=== PATIENT | male | born 1955 | race Hispanic/Latino ===

== ENCOUNTER 2019-06-26 14:39 | Emergency (ER) | payer MEDICARE ==
[2019-06-26] MEDS ORDERED: ATIVAN IM STA (16:26)
[2019-06-26 16:32] LABS: Basophils # (Auto) 0.1 K/mm3 (0.0-0.1); Basophils % (Auto) 0.7 % (0.0-1.8); Eosinophils # (Auto) 0.2 K/mm3 (0.0-0.4); Eosinophils % (Auto) 2.4 % (0.0-4.3); Hematocrit 37.1 % (35.5-45.6); Hemoglobin 12.5 gm/dl (11.8-15.2); Lymphocytes # (Auto) 1.7 K/mm3 (1.2-5.4); Mean Corpuscular HGB Conc 34 % (32-34); Mean Corpuscular Volume 85 fl (84-94); Monocytes # (Auto) 0.8 K/mm3 (0.0-0.8); Monocytes % (Auto) 8.5 % (0.0-7.3); Platelet Count 271 K/mm3 (140-440); Red Blood Count 4.37 M/mm3 (3.65-5.03)
--- NOTE | 2019-06-26 16:34 | Emergency Department Report ---
ED Psych HPI - General Chief Complaint: Medical Clearance Stated Complaint: 1013 Time Seen by Provider: 06/26/19 16:25 Source: patient, EMS, RN notes reviewed Mode of arrival: Ambulatory - History of Present Illness Initial Comments: Mr. Black is a 63 year old male with history of dementia who presents from [facility] in [place] on 1012 involuntary hold protocol. According to the form by 1012 documentation he has been intermittently aggressive with staff. His aggression is not regulated on psychotropic medicine. He is resistant to help with ADLs. He has had intentional bowel and bladder incontinence. Mr. Black denies any discomfort. He is obviously agitated. I have reviewed the medications listed. Medications listed Seroquel Aricept Flomax lorazepam Tylenol. According to additional documentation, resident has Mr. Black has resisted care. He has been aggressive and combative. He resists redirection. MD Complaint: other (history of dementia, agitation and aggressive behavior) -: Gradual, days(s) (several days) Associated Psychiatric Symptoms: other (agitation and aggressive behavior) Quality: constant Improves With: none Worsens With: none Context: other (history of dementia, resides at memory care group home facility) Treatments Prior to Arrival: placed on mental he - Related Data Allergies Allergy/AdvReac Type Severity Reaction Status Date / Time No Known Allergies Allergy Unverified 06/26/19 16:07 ED Review of Systems ROS: Stated complaint: 1013 Other details as noted in HPI Comment: Unobtainable due to pts medical conditions (history of dementia and limited patient cooperation) ED Past Medical Hx - Past Medical History Previous Medical History?: Yes Hx Dementia: Yes - Surgical History Past Surgical History?: No - Social History Smoking Status: Unknown if ever smoked ED Physical Exam - General Limitations: Altered Mental Status General appearance: alert, in no apparent distress, other (he appears nontoxic, he is agitated, when I asked permission to listen to his heart and lungs he explains: "Make sure my heart is still there") - Head Head exam: Present: atraumatic, normocephalic - Eye Eye exam: Present: normal appearance - ENT ENT exam: Present: mucous membranes moist - Neck Neck exam: Present: normal inspection - Respiratory Respiratory exam: Present: normal lung sounds bilaterally. Absent: respiratory distress, wheezes, rales, rhonchi - Cardiovascular Cardiovascular Exam: Present: regular rate, normal rhythm, normal heart sounds. Absent: systolic murmur, diastolic murmur, rubs, gallop - GI/Abdominal GI/Abdominal exam: Present: soft, normal bowel sounds. Absent: distended, tenderness, guarding, rebound - Rectal Rectal exam: Present: deferred - Extremities Exam Extremities exam: Present: normal inspection - Neurological Exam Neurological exam: Present: alert, other (oriented to name) - Psychiatric Psychiatric exam: Present: agitated - Skin Skin exam: Present: warm, dry, intact, normal color. Absent: rash ED Medical Decision Making - Medical Decision Making Mr. Black is a 63-year-old male with history of dementia. He presents from [facility] nursing facility with resistance to perform ADLs, intentional incontinence, and aggressive behavior towards staff and residents. He presents on 1012 involuntary hold protocol. He has been assisted to our geriatric psych unit. He is medically clear for psychiatric care. I have reviewed labs obtained here in the emergency department. Upon arrival Mr. Black received IM lorazepam for chemical restraint. Critical care attestation.: If time is entered above; I have spent that time in minutes in the direct care of this critically ill patient, excluding procedure time. ED Disposition Clinical Impression: Dementia, Aggressive behavior of adult, Violent behavior Disposition: DC-01 TO HOME OR SELFCARE Is pt being admited?: No Does the pt Need Aspirin: No Condition: Stable
[2019-06-26 16:52] LABS: BUN/Creatinine Ratio 21; Blood Urea Nitrogen 21 mg/dL (9-20); Calcium 9.2 mg/dL (8.4-10.2); Hemolysis Index 7
[2019-06-26 17:03] VITALS: BP 123/76
[2019-06-26 17:33] LABS: Bilirubin,Urine NEG (Negative); Blood,Urine NEG (Negative); Color,Urine Yellow (Yellow); Mucus,Urine FEW /HPF; Protein,Urine <15 mg/dL mg/dL (Negative); RBC,Urine < 1.0 /HPF (0.0-6.0); Urobilinogen,Urine < 2.0 mg/dL (<2.0); WBC,Urine < 1.0 /HPF (0.0-6.0)
[2019-06-26 17:35] LABS: Amphetamine Screen,Urine PRESUMPTIVE NEGATIVE; Benzodiazepines Screen,Urine PRESUMPTIVE NEGATIVE; Cannabinoid Screen,Urine PRESUMPTIVE NEGATIVE; Cocaine Screen,Urine PRESUMPTIVE NEGATIVE; Methadone Screen,Urine PRESUMPTIVE NEGATIVE; Opiate Screen,Urine PRESUMPTIVE NEGATIVE
== END 2019-06-26 21:26 | disposition home or self-care (01) ==
LOC: EEVIPCON 14:39 → ED 14:39
DX: F91.1 Conduct disorder, childhood-onset type (principal); R45.6 Violent behavior; F03.90 Unspecified dementia, unspecified severity, without behavioral disturbance, psychotic disturbance, mood disturbance, and anxiety
CPT/HCPCS: 36415; 80048; 80307; 81001; 85025; 96372; 99284; J2060; 80320; G0480

== ENCOUNTER 2019-06-26 17:44 | Inpatient (IN) | payer MEDICARE ==
[2019-06-27] MEDS: LORazepam 2 MG/ML VIAL IM PRN ×2 (01:52→11:56)
[2019-06-27] MEDS: HALOPERIDOL LACTATE 5 MG/1 ML INJ IM PRN ×2 (07:42→16:00)
--- NOTE | 2019-06-27 09:09 | History and Physical Report ---
GP History & Physical - History of Present Illness Date of admission: 06/26/19 Date of Examination: 06/27/19 Reason for Admission: Danger to self, Danger to others, Unable to care for self Chief Complaint: Aggressive History of Present Illness: The patient is a 63yo male with history of Alzheimer's dementia who was admitted to [facility] last night via the ED with history of aggressive and combative behavior. The patient resides at [facility]. He is reportedly aggressive, combative, refusing cares and medications. Patient seen in the Dayroom. He is ambulatory, paces but very unsteady. He has a high risk of fall, hence he is on 1:1. He is very confused, oriented to self only and unable to engage in any meaningful conversation. Nursing staff reports that patient is restless, agitated, impulsive and not following re-directions Legal Status: Involuntary Patient Problems: Current Active Problems Major neurocognitive disorder due to Alzheimer's disease, with behavioral disturbance (Acute) Reaction to Hospitalization: Resistant Substance History - Substance History Drug Use: other (Unknown) Past psychiatric history - Past Medical History Past Medical History: other (Unknown) - Social History Social history: (lives in a [facility], daughter is her POA) Review of Systems ROS unobtainable: due to mental status Results - Results Labs/Vitals: Laboratory Last Values POC Glucose 112 (70-105) H 06/26/19 21:24 Last Vital Signs Temp 97.7 F 06/26/19 21:05 Pulse 65 06/26/19 21:05 Resp 18 06/26/19 21:05 BP 136/77 06/26/19 21:05 Pulse Ox 93 06/26/19 21:05 Physical Examination - Constitutional Vitals: Vital Signs Temp Pulse Resp BP Pulse Ox 97.7 F 65 18 136/77 93 06/26/19 21:05 06/26/19 21:05 06/26/19 21:05 06/26/19 21:05 06/26/19 21:05 Temperature -Last 24 Hours Temperature 97.7 F Temperature 97.7 F Mental Status Exam - Vital signs Last Vital Signs Temp 97.7 F 06/26/19 21:05 Pulse 65 06/26/19 21:05 Resp 18 06/26/19 21:05 BP 136/77 06/26/19 21:05 Pulse Ox 93 06/26/19 21:05 - Exam Affect: agitated Mood: congruent with affect, anxious Thought Process: Disorganized, Disoriented Perceptions: none Speech: paucity Concentration: unable to pay attention Motor activity: restless, agitated Level of consciousness: confused Memory: Recent Impaired, Remote Impaired Interaction: uncooperative Mini mental status exam(if necessary): 0-17 Assessment and Plan - Psychiatric problem (1) Major neurocognitive disorder due to Alzheimer's disease, with behavioral disturbance Current Visit: Yes Status: Acute plan to address problem: Patient will be admitted for inpatient psychiatric evaluation, medication adjustment and close monitoring The patient's behavior, mood, sleep and appetite will be closely monitored. Patient will be enrolled in individual and group therapeutic sessions and encouraged to attend. Patient will be provided with a safe and structured environment. Patient's physical health needs will be addressed by the Hospitalist. Social Assessment will be completed and the Lithographic Press Operator will work with patient and family to ensure a suitable and safe disposition Medication adjustment will be made as clinically indicated Physician Certification - Certification Statement Physician Certification Statement: This is an acknowledgement statement that SHY RIBERA is a 63 year old M who requires inpatient psychiatric admission for treatment which could reasonably be expected to improve the patient's condition for Dementia with behavioral disturbance Estimated period of time patient will need to remain in the hospital: 7 days Plan for post-hospital care: Out-patient care Medications & Allergies - Medications Allergies/Adverse Reactions: Allergies No Known Allergies Allergy (Unverified 06/26/19 16:07) Home Medications: Home Medications Medication Instructions Recorded Confirmed Last Taken Type Acetaminophen [Tylenol] 650 mg PO Q8HR PRN 06/26/19 06/26/19 Unknown History Donepezil [Aricept] 5 mg PO QHS 06/26/19 06/26/19 Unknown History LORazepam [Ativan] 0.5 mg PO TID PRN 06/26/19 06/26/19 Unknown History Quetiapine Fumarate [SEROquel] 50 mg PO QHS 06/26/19 06/26/19 Unknown History SEROquel 25 mg PO BID 06/26/19 06/26/19 Unknown History Tamsulosin [Flomax] 0.4 mg PO QHS 06/26/19 06/26/19 Unknown History Active Medications: Generic Name Dose Route Start Last Admin Trade Name Freq PRN Reason Stop Dose Admin Haloperidol 5 mg 06/26/19 19:59 Haldol PO Q6H PRN Agitation Haloperidol Lactate 5 mg 06/26/19 19:59 06/27/19 07:42 Haldol IM 5 mg Q6H PRN Administration Agitation Lorazepam 2 mg 06/26/19 19:59 06/27/19 01:52 Ativan IM 2 mg Q6H PRN Administration Agitation Lorazepam 2 mg 06/26/19 20:00 Ativan PO Q6H PRN Agitation
[2019-06-27] MEDS: risperiDONE 0.25 MG TAB PO SCH ×2 (10:29→21:16)
[2019-06-27] MEDS: traZODone 50 MG TAB PO SCH ×4 (10:29→21:15)
[2019-06-27 12:09] LABS: Chol/HDL Ratio 3.71 %
[2019-06-27] MEDS ORDERED: ACETAMINOPHEN 650 MG PO PRN (14:31)
--- NOTE | 2019-06-27 14:32 | Consultation ---
History of Present Illness - History of Present Illness 63-year-old man with history of Alzheimer's dementia who was brought to the [facility] for combative and aggressive behavior. Patient has remained combative refusing care and medications. Past medical history BPH, Alzheimer's dementia Past surgical history; unknown Social history Lives at [facility], , his daughter is his POA Family history; noncontributory Past History Past Medical History: other (Unknown) Social history: (lives in a Memory care center, daughter is her POA) Medications and Allergies Allergies Allergy/AdvReac Type Severity Reaction Status Date / Time No Known Allergies Allergy Unverified 06/26/19 16:07 Home Medications Medication Instructions Recorded Confirmed Last Taken Type Acetaminophen [Tylenol] 650 mg PO Q8HR PRN 06/26/19 06/26/19 Unknown History Donepezil [Aricept] 5 mg PO QHS 06/26/19 06/26/19 Unknown History LORazepam [Ativan] 0.5 mg PO TID PRN 06/26/19 06/26/19 Unknown History Quetiapine Fumarate [SEROquel] 50 mg PO QHS 06/26/19 06/26/19 Unknown History SEROquel 25 mg PO BID 06/26/19 06/26/19 Unknown History Tamsulosin [Flomax] 0.4 mg PO QHS 06/26/19 06/26/19 Unknown History Active Meds: Active Medications Donepezil HCl (Aricept) 5 mg PO QHS [facility] Haloperidol (Haldol) 5 mg PO Q6H PRN PRN Reason: Agitation Haloperidol Lactate (Haldol) 5 mg IM Q6H PRN PRN Reason: Agitation Last Admin: 06/27/19 07:42 Dose: 5 mg Documented by: Lorazepam (Ativan) 2 mg IM Q6H PRN PRN Reason: Agitation Last Admin: 06/27/19 11:56 Dose: 2 mg Documented by: Lorazepam (Ativan) 2 mg PO Q6H PRN PRN Reason: Agitation Melatonin (Melatonin) 10 mg PO QHS PRN PRN Reason: Sleep Miscellaneous Medication (Acetaminophen [Tylenol]) 650 mg PO Q8HR PRN PRN Reason: Pain , Severe (7-10) Risperidone (Risperdal) 0.5 mg PO BID [facility] Last Admin: 06/27/19 10:29 Dose: 0.5 mg Documented by: Tamsulosin HCl (Flomax) 0.4 mg PO QHS [facility] Trazodone HCl (Desyrel) 25 mg PO QID [facility] Last Admin: 06/27/19 10:29 Dose: 25 mg Documented by: Review of Systems ROS unobtainable: due to mental status Exam - Constitutional Vitals: Temp Pulse Resp BP Pulse Ox 97.2 F L 63 18 129/75 98 06/27/19 10:00 06/27/19 10:00 06/27/19 10:00 06/27/19 10:00 06/27/19 10:00 General appearance: Present: no acute distress, well-nourished - EENT Eyes: Present: PERRL ENT: hearing intact, clear oral mucosa - Neck Neck: Present: supple, normal ROM - Respiratory Respiratory effort: normal Respiratory: bilateral: CTA - Cardiovascular Heart Sounds: Present: S1 & S2. Absent: rub, click - Extremities Extremities: pulses symmetrical, No edema Peripheral Pulses: within normal limits - Abdominal General gastrointestinal: Present: soft, non-tender, non-distended, normal bowel sounds Male genitourinary: Present: normal - Integumentary Integumentary: Present: clear, warm, dry - Musculoskeletal Musculoskeletal: gait normal, strength equal bilaterally - Psychiatric Psychiatric: no appropriate mood/affect, no intact judgment & insight - Neurologic Neurologic: CNII-XII intact, moves all extremities, no gait normal Results - Labs Labs: Abnormal lab results 06/26/19 06/26/19 Range/Units 19:16 21:24 POC Glucose 112 H (70-105) Triglycerides 161 H (2-149) mg/dL Assessment and Plan Assessment and plan 63-year-old man admitted from memory care center, history of Alzheimer's dementia who is presenting with combative and aggressive behavior BPH Continue Flomax Combative/aggressive behavior/dementia Management per psychiatry
[2019-06-27] MEDS ORDERED: ACETAMINOPHEN 325 MG TAB PO PRN (14:38)
[2019-06-27] MEDS: LORazepam 2 MG TAB PO PRN (21:15)
[2019-06-27] MEDS: TAMSULOSIN 0.4 MG CAP PO SCH (21:15)
[2019-06-27] MEDS: DONEPEZIL 5 MG TAB PO SCH (21:16)
[2019-06-28] MEDS: risperiDONE 0.25 MG TAB PO SCH ×2 (09:11→21:37)
[2019-06-28] MEDS: LORazepam 2 MG TAB PO PRN ×2 (09:11→19:58)
[2019-06-28] MEDS: traZODone 50 MG TAB PO SCH ×4 (09:12→21:36)
--- NOTE | 2019-06-28 11:13 | Progress Note ---
Subjective Date of service: 06/28/19 Principal diagnosis: Dementia with behavioral disturbance Subjective Comment: The patient is severely confused, agitated, combative and has a high fall risk. He likes to wander. He is on 1:1 for safety. MSE Affect: agitated Mood: congruent with affect, anxious Thought Process: Disorganized, Disoriented Perceptions: none Speech: paucity Concentration: unable to pay attention Motor activity: restless, agitated Level of consciousness: confused Memory: Recent Impaired, Remote Impaired Interaction: uncooperative Objective - Criteria for Continued Treatment Criteria for Continued Treatment: Improving Level of Functioning, Stablizing Level of Functioning, Improving Emotional/Socia - Objective Observation Participation Level: Minimal Reason(s) For Not Participating: Unable Assessment and Plan - Patient Problems (1) Major neurocognitive disorder due to Alzheimer's disease, with behavioral disturbance Current Visit: Yes Status: Acute Plan to address problem: Patient will be admitted for inpatient psychiatric evaluation, medication adjustment and close monitoring The patient's behavior, mood, sleep and appetite will be closely monitored. Patient will be enrolled in individual and group therapeutic sessions and encouraged to attend. Patient will be provided with a safe and structured environment. Patient's physical health needs will be addressed by the Hospitalist. Social Assessment will be completed and the Zigzag Elastic Attacher will work with patient and family to ensure a suitable and safe disposition Medication adjustment will be made as clinically indicated Medications & Allergies - Medications Allergies/Adverse Reactions: Allergies No Known Allergies Allergy (Unverified 06/26/19 16:07) Home Medications: Home Medications Medication Instructions Recorded Confirmed Last Taken Type Acetaminophen [Tylenol] 650 mg PO Q8HR PRN 06/26/19 06/26/19 Unknown History Donepezil [Aricept] 5 mg PO QHS 06/26/19 06/26/19 Unknown History LORazepam [Ativan] 0.5 mg PO TID PRN 06/26/19 06/26/19 Unknown History Quetiapine Fumarate [SEROquel] 50 mg PO QHS 06/26/19 06/26/19 Unknown History SEROquel 25 mg PO BID 06/26/19 06/26/19 Unknown History Tamsulosin [Flomax] 0.4 mg PO QHS 06/26/19 06/26/19 Unknown History Active Medications: Generic Name Dose Route Start Last Admin Trade Name Freq PRN Reason Stop Dose Admin Acetaminophen 650 mg 06/27/19 14:38 Tylenol PO Q4H PRN Pain, Mild (1-3) Donepezil HCl 5 mg 06/27/19 22:00 06/28/19 21:36 Aricept PO 5 mg QHS LIGIA Administration Haloperidol 5 mg 06/26/19 19:59 06/29/19 13:09 Haldol PO 5 mg Q6H PRN Administration Agitation Haloperidol Lactate 5 mg 06/26/19 19:59 06/27/19 16:00 Haldol IM 5 mg Q6H PRN Administration Agitation Lorazepam 2 mg 06/26/19 19:59 06/27/19 11:56 Ativan IM 2 mg Q6H PRN Administration Agitation Lorazepam 2 mg 06/26/19 20:00 06/29/19 08:33 Ativan PO 2 mg Q6H PRN Administration Agitation Melatonin 10 mg 06/27/19 22:00 06/28/19 21:37 Melatonin PO 10 mg QHS PRN Administration Sleep Risperidone 0.5 mg 06/27/19 10:00 06/29/19 09:11 Risperdal PO 0.5 mg BID LIGIA Administration Tamsulosin HCl 0.4 mg 06/27/19 22:00 06/28/19 21:37 Flomax PO 0.4 mg QHS LIGIA Administration Trazodone HCl 25 mg 06/27/19 10:00 06/29/19 13:09 Desyrel PO 25 mg QID LIGIA Administration
[2019-06-28] MEDS: DONEPEZIL 5 MG TAB PO SCH (21:36)
[2019-06-28] MEDS: MELATONIN 5 MG TAB PO PRN (21:37)
[2019-06-28] MEDS: TAMSULOSIN 0.4 MG CAP PO SCH (21:37)
[2019-06-28] MEDS: HALOPERIDOL 5 MG TAB PO PRN (21:37)
[2019-06-29] MEDS: LORazepam 2 MG TAB PO PRN ×2 (08:33→21:06)
[2019-06-29] MEDS: traZODone 50 MG TAB PO SCH ×4 (09:11→22:00)
[2019-06-29] MEDS: risperiDONE 0.25 MG TAB PO SCH ×2 (09:11→21:06)
[2019-06-29] MEDS: HALOPERIDOL 5 MG TAB PO PRN ×2 (13:09→21:07)
[2019-06-29] MEDS: DONEPEZIL 5 MG TAB PO SCH (21:07)
[2019-06-29] MEDS: TAMSULOSIN 0.4 MG CAP PO SCH (21:08)
--- NOTE | 2019-06-29 21:36 | Progress Note ---
Subjective Date of service: 06/29/19 Principal diagnosis: Dementia with behavioral disturbance Subjective Comment: No changes. The patient is severely confused, agitated, combative and has a high fall risk. He likes to wander. He is on 1:1 for safety. MSE Affect: agitated Mood: congruent with affect, anxious Thought Process: Disorganized, Disoriented Perceptions: none Speech: paucity Concentration: unable to pay attention Motor activity: restless, agitated Level of consciousness: confused Memory: Recent Impaired, Remote Impaired Interaction: uncooperative Objective - Criteria for Continued Treatment Criteria for Continued Treatment: Improving Level of Functioning, Stablizing Level of Functioning, Improving Emotional/Socia - Objective Observation Participation Level: Minimal Reason(s) For Not Participating: Unable Assessment and Plan - Patient Problems (1) Major neurocognitive disorder due to Alzheimer's disease, with behavioral disturbance Current Visit: Yes Status: Acute Plan to address problem: Patient will be admitted for inpatient psychiatric evaluation, medication adjustment and close monitoring The patient's behavior, mood, sleep and appetite will be closely monitored. Patient will be enrolled in individual and group therapeutic sessions and encouraged to attend. Patient will be provided with a safe and structured environment. Patient's physical health needs will be addressed by the Hospitalist. Social Assessment will be completed and the Farmer Diversified Crops will work with patient and family to ensure a suitable and safe disposition Medication adjustment will be made as clinically indicated Medications & Allergies - Medications Allergies/Adverse Reactions: Allergies No Known Allergies Allergy (Unverified 06/26/19 16:07) Home Medications: Home Medications Medication Instructions Recorded Confirmed Last Taken Type Acetaminophen [Tylenol] 650 mg PO Q8HR PRN 06/26/19 06/26/19 Unknown History Donepezil [Aricept] 5 mg PO QHS 06/26/19 06/26/19 Unknown History LORazepam [Ativan] 0.5 mg PO TID PRN 06/26/19 06/26/19 Unknown History Quetiapine Fumarate [SEROquel] 50 mg PO QHS 06/26/19 06/26/19 Unknown History SEROquel 25 mg PO BID 06/26/19 06/26/19 Unknown History Tamsulosin [Flomax] 0.4 mg PO QHS 06/26/19 06/26/19 Unknown History Active Medications: Generic Name Dose Route Start Last Admin Trade Name Freq PRN Reason Stop Dose Admin Acetaminophen 650 mg 06/27/19 14:38 Tylenol PO Q4H PRN Pain, Mild (1-3) Donepezil HCl 5 mg 06/27/19 22:00 06/29/19 21:07 Aricept PO 5 mg QHS LIGIA Administration Haloperidol 5 mg 06/26/19 19:59 06/29/19 21:07 Haldol PO 5 mg Q6H PRN Administration Agitation Haloperidol Lactate 5 mg 06/26/19 19:59 06/27/19 16:00 Haldol IM 5 mg Q6H PRN Administration Agitation Lorazepam 2 mg 06/26/19 19:59 06/27/19 11:56 Ativan IM 2 mg Q6H PRN Administration Agitation Lorazepam 2 mg 06/26/19 20:00 06/29/19 21:06 Ativan PO 2 mg Q6H PRN Administration Agitation Melatonin 10 mg 06/27/19 22:00 06/28/19 21:37 Melatonin PO 10 mg QHS PRN Administration Sleep Risperidone 0.5 mg 06/27/19 10:00 06/29/19 21:06 Risperdal PO 0.5 mg BID LIGIA Administration Tamsulosin HCl 0.4 mg 06/27/19 22:00 06/29/19 21:08 Flomax PO 0.4 mg QHS LIGIA Administration Trazodone HCl 25 mg 06/27/19 10:00 06/29/19 17:08 Desyrel PO 25 mg QID LIGIA Administration
[2019-06-30] MEDS: LORazepam 2 MG TAB PO PRN (08:45)
[2019-06-30] MEDS: HALOPERIDOL 5 MG TAB PO PRN (08:45)
--- NOTE | 2019-06-30 08:56 | Progress Note ---
Subjective Date of service: 06/30/19 Principal diagnosis: Dementia with behavioral disturbance Subjective Comment: No changes. The patient is severely confused, agitated, combative and has a high fall risk. He likes to wander. Per Nursing records, patient is alert and oriented x's 1, confused, impulsive, and restless. patient currently medication compliant, tolerating them crushed in pudding. patient requires frequent redirection for impulsive and restless bx. patient pushes the table forward and the chair back, standing up on his own. patient has an unsteady gait requiring a 1 person assist. ativan 2mg po prn administered at 0833 and haldol 5mg po prn administered at 1309. patient cont inues to require frequent redirection with prn medications. patient tells staff, "let's go". he is incontinent. will continue to monitor for safety MSE Affect: agitated Mood: congruent with affect, anxious Thought Process: Disorganized, Disoriented Perceptions: none Speech: paucity Concentration: unable to pay attention Motor activity: restless, agitated Level of consciousness: confused Memory: Recent Impaired, Remote Impaired Interaction: uncooperative Objective - Criteria for Continued Treatment Criteria for Continued Treatment: Improving Level of Functioning, Stablizing Level of Functioning, Improving Emotional/Socia - Objective Observation Participation Level: Minimal Reason(s) For Not Participating: Unable Assessment and Plan - Patient Problems (1) Major neurocognitive disorder due to Alzheimer's disease, with behavioral disturbance Current Visit: Yes Status: Acute Plan to address problem: Continue inpatient admission for medication adjustment and close monitoring The patient's behavior, mood, sleep and appetite will be closely monitored. Patient will be enrolled in individual and group therapeutic sessions and encouraged to attend. Patient will be provided with a safe and structured environment. Patient's physical health needs will be addressed by the Hospitalist. Social Assessment will be completed and the Turpentine Distiller will work with patient and family to ensure a suitable and safe disposition Medication adjustment will be made as clinically indicated Will start Depakote 250mg tid for mood Medications & Allergies - Medications Allergies/Adverse Reactions: Allergies No Known Allergies Allergy (Unverified 06/26/19 16:07) Home Medications: Home Medications Medication Instructions Recorded Confirmed Last Taken Type Acetaminophen [Tylenol] 650 mg PO Q8HR PRN 06/26/19 06/26/19 Unknown History Donepezil [Aricept] 5 mg PO QHS 06/26/19 06/26/19 Unknown History LORazepam [Ativan] 0.5 mg PO TID PRN 06/26/19 06/26/19 Unknown History Quetiapine Fumarate [SEROquel] 50 mg PO QHS 06/26/19 06/26/19 Unknown History SEROquel 25 mg PO BID 06/26/19 06/26/19 Unknown History Tamsulosin [Flomax] 0.4 mg PO QHS 06/26/19 06/26/19 Unknown History Active Medications: Generic Name Dose Route Start Last Admin Trade Name Freq PRN Reason Stop Dose Admin Acetaminophen 650 mg 06/27/19 14:38 Tylenol PO Q4H PRN Pain, Mild (1-3) Donepezil HCl 5 mg 06/27/19 22:00 06/29/19 21:07 Aricept PO 5 mg QHS LIGIA Administration Haloperidol 5 mg 06/26/19 19:59 06/30/19 08:45 Haldol PO 5 mg Q6H PRN Administration Agitation Haloperidol Lactate 5 mg 06/26/19 19:59 06/27/19 16:00 Haldol IM 5 mg Q6H PRN Administration Agitation Lorazepam 2 mg 06/26/19 19:59 06/27/19 11:56 Ativan IM 2 mg Q6H PRN Administration Agitation Lorazepam 2 mg 06/26/19 20:00 06/30/19 08:45 Ativan PO 2 mg Q6H PRN Administration Agitation Melatonin 10 mg 06/27/19 22:00 06/28/19 21:37 Melatonin PO 10 mg QHS PRN Administration Sleep Risperidone 0.5 mg 06/27/19 10:00 06/29/19 21:06 Risperdal PO 0.5 mg BID LIGIA Administration Tamsulosin HCl 0.4 mg 06/27/19 22:00 06/29/19 21:08 Flomax PO 0.4 mg QHS LIGIA Administration Trazodone HCl 25 mg 06/27/19 10:00 06/29/19 22:00 Desyrel PO 25 mg QID LIGIA Administration
[2019-06-30] MEDS: risperiDONE 0.25 MG TAB PO SCH ×2 (09:15→21:54)
[2019-06-30] MEDS: traZODone 50 MG TAB PO SCH ×4 (09:16→21:53)
[2019-06-30] MEDS: DIVALPROEX SPRINKLE 125 MG CAP PO SCH ×2 (14:25→21:53)
[2019-06-30] MEDS ORDERED: predniSONE 10 MG TAB PO SCH (16:00)
--- NOTE | 2019-06-30 17:09 | XRay Report ---
LEFT KNEE 3 VIEWS INDICATION / CLINICAL INFORMATION: Left knee pain. COMPARISON: None available. FINDINGS: BONES / JOINT(S): There are advanced tricompartmental degenerative changes. There is a moderate supra patellar joint effusion. I see no evidence of fracture or dislocation. SOFT TISSUES: No significant abnormality. ADDITIONAL FINDINGS: None. IMPRESSION: Advanced osteoarthritis and moderate suprapatellar joint effusion without acute osseous a bnormality. Signer Name: Reese Marquez MD Signed: 06/30/2019 5:04 PM Workstation Name: [id number]
[2019-06-30] MEDS: NAPROXEN 375 MG TAB PO PRN (17:34)
[2019-06-30] MEDS: predniSONE 10 MG TAB PO SCH (17:35)
[2019-06-30] MEDS: DONEPEZIL 5 MG TAB PO SCH (21:53)
[2019-06-30] MEDS: TAMSULOSIN 0.4 MG CAP PO SCH (21:54)
[2019-07-01] MEDS: DIVALPROEX SPRINKLE 125 MG CAP PO SCH ×3 (06:19→21:11)
[2019-07-01 10:32] LABS: Basophils % (Auto) 0.2 % (0.0-1.8); Eosinophils # (Auto) 0.1 K/mm3 (0.0-0.4); Eosinophils % (Auto) 0.4 % (0.0-4.3); Hemoglobin 13.8 gm/dl (11.8-15.2); Lymphocytes # (Auto) 1.7 K/mm3 (1.2-5.4); Lymphocytes % (Auto) 12.5 % (13.4-35.0); Mean Corpuscular HGB Conc 34 % (32-34); Mean Corpuscular Volume 85 fl (84-94); Monocytes # (Auto) 1.2 K/mm3 (0.0-0.8); Monocytes % (Auto) 9.1 % (0.0-7.3); Platelet Count 306 K/mm3 (140-440); Red Cell Distribution Width 15.2 % (13.2-15.2)
[2019-07-01] MEDS: risperiDONE 0.25 MG TAB PO SCH ×2 (10:33→21:11)
[2019-07-01] MEDS: traZODone 50 MG TAB PO SCH ×4 (10:33→21:11)
[2019-07-01 10:56] LABS: BUN/Creatinine Ratio 21; Blood Urea Nitrogen 17 mg/dL (9-20); Calcium 9.7 mg/dL (8.4-10.2); Hemolysis Index 3
[2019-07-01] MEDS: predniSONE 10 MG TAB PO SCH (11:04)
[2019-07-01] MEDS: NAPROXEN 375 MG TAB PO PRN (15:15)
[2019-07-01] MEDS: DONEPEZIL 5 MG TAB PO SCH (21:11)
[2019-07-01] MEDS: TAMSULOSIN 0.4 MG CAP PO SCH (21:11)
[2019-07-02] MEDS: LORazepam 2 MG/ML VIAL IM PRN ×2 (02:22→21:29)
[2019-07-02] MEDS: HALOPERIDOL LACTATE 5 MG/1 ML INJ IM PRN ×2 (02:22→21:29)
[2019-07-02] MEDS: DIVALPROEX SPRINKLE 125 MG CAP PO SCH ×3 (07:13→21:28)
[2019-07-02] MEDS: predniSONE 10 MG TAB PO SCH (09:38)
[2019-07-02] MEDS: traZODone 50 MG TAB PO SCH ×4 (09:38→21:28)
[2019-07-02] MEDS: risperiDONE 0.25 MG TAB PO SCH ×2 (09:38→21:29)
[2019-07-02] MEDS: HALOPERIDOL 5 MG TAB PO PRN (11:41)
[2019-07-02] MEDS: LORazepam 2 MG TAB PO PRN (11:41)
--- NOTE | 2019-07-02 21:20 | Progress Note ---
Subjective Date of service: 07/01/19 Principal diagnosis: Dementia with behavioral disturbance Subjective Comment: The patient is severely confused, agitated, combative and has a high fall risk. He likes to wander. MSE Affect: agitated Mood: congruent with affect, anxious Thought Process: Disorganized, Disoriented Perceptions: none Speech: paucity Concentration: unable to pay attention Motor activity: restless, agitated Level of consciousness: confused Memory: Recent Impaired, Remote Impaired Interaction: uncooperative Objective - Criteria for Continued Treatment Criteria for Continued Treatment: Improving Level of Functioning, Stablizing Level of Functioning, Improving Emotional/Socia - Objective Observation Participation Level: Minimal Reason(s) For Not Participating: Unable Assessment and Plan - Patient Problems (1) Major neurocognitive disorder due to Alzheimer's disease, with behavioral disturbance Current Visit: Yes Status: Acute Plan to address problem: Continue inpatient admission for medication adjustment and close monitoring The patient's behavior, mood, sleep and appetite will be closely monitored. Patient will be enrolled in individual and group therapeutic sessions and encouraged to attend. Patient will be provided with a safe and structured environment. Patient's physical health needs will be addressed by the Hospitalist. Social Assessment will be completed and the Photovoltaic Subcontractor will work with patient and family to ensure a suitable and safe disposition Medication adjustment will be made as clinically indicated Will continue Depakote 250mg tid for mood Medications & Allergies - Medications Allergies/Adverse Reactions: Allergies No Known Allergies Allergy (Unverified 06/26/19 16:07) Home Medications: Home Medications Medication Instructions Recorded Confirmed Last Taken Type Acetaminophen [Tylenol] 650 mg PO Q8HR PRN 06/26/19 06/26/19 Unknown History Donepezil [Aricept] 5 mg PO QHS 06/26/19 06/26/19 Unknown History LORazepam [Ativan] 0.5 mg PO TID PRN 06/26/19 06/26/19 Unknown History Quetiapine Fumarate [SEROquel] 50 mg PO QHS 06/26/19 06/26/19 Unknown History SEROquel 25 mg PO BID 06/26/19 06/26/19 Unknown History Tamsulosin [Flomax] 0.4 mg PO QHS 06/26/19 06/26/19 Unknown History Active Medications: Generic Name Dose Route Start Last Admin Trade Name Freq PRN Reason Stop Dose Admin Divalproex Sodium 250 mg 06/30/19 14:00 07/02/19 14:28 Depakote Sprinkle PO 250 mg Q8HR LIGIA Administration Donepezil HCl 5 mg 06/27/19 22:00 07/01/19 21:11 Aricept PO 5 mg QHS LIGIA Administration Haloperidol 5 mg 06/26/19 19:59 07/02/19 11:41 Haldol PO 5 mg Q6H PRN Administration Agitation Haloperidol Lactate 5 mg 06/26/19 19:59 07/02/19 02:22 Haldol IM 5 mg Q6H PRN Administration Agitation Lorazepam 2 mg 06/26/19 19:59 07/02/19 02:22 Ativan IM 2 mg Q6H PRN Administration Agitation Lorazepam 2 mg 06/26/19 20:00 07/02/19 11:41 Ativan PO 2 mg Q6H PRN Administration Agitation Melatonin 10 mg 06/27/19 22:00 06/28/19 21:37 Melatonin PO 10 mg QHS PRN Administration Sleep Naproxen 375 mg 06/30/19 15:04 07/01/19 15:15 Naprosyn PO 375 mg Q12H PRN Administration Pain, Mild (1-3) Prednisone 10 mg 06/30/19 16:00 07/02/19 09:38 Deltasone PO 10 mg QDAY LIGIA Administration Risperidone 0.5 mg 06/27/19 10:00 07/02/19 09:38 Risperdal PO 0.5 mg BID LIGIA Administration Tamsulosin HCl 0.4 mg 06/27/19 22:00 07/01/19 21:11 Flomax PO 0.4 mg QHS LIGIA Administration Trazodone HCl 25 mg 06/27/19 10:00 07/02/19 17:31 Desyrel PO 25 mg QID LIGIA Administration
--- NOTE | 2019-07-02 21:22 | Progress Note ---
Subjective Date of service: 07/02/19 Principal diagnosis: Dementia with behavioral disturbance Subjective Comment: The patient is easier to re-direct today. He continues to be very confused, wanders and has a high fall risk. MSE Affect: agitated Mood: congruent with affect, anxious Thought Process: Disorganized, Disoriented Perceptions: none Speech: paucity Concentration: unable to pay attention Motor activity: restless, agitated Level of consciousness: confused Memory: Recent Impaired, Remote Impaired Interaction: uncooperative Objective - Criteria for Continued Treatment Criteria for Continued Treatment: Improving Level of Functioning, Stablizing Level of Functioning, Improving Emotional/Socia - Objective Observation Participation Level: Minimal Reason(s) For Not Participating: Unable Assessment and Plan - Patient Problems (1) Major neurocognitive disorder due to Alzheimer's disease, with behavioral disturbance Current Visit: Yes Status: Acute Plan to address problem: Continue inpatient admission for medication adjustment and close monitoring The patient's behavior, mood, sleep and appetite will be closely monitored. Patient will be enrolled in individual and group therapeutic sessions and encouraged to attend. Patient will be provided with a safe and structured environment. Patient's physical health needs will be addressed by the Hospitalist. Social Assessment will be completed and the Outsole Splicer will work with patient and family to ensure a suitable and safe disposition Medication adjustment will be made as clinically indicated Will continue Depakote 250mg tid for mood Medications & Allergies - Medications Allergies/Adverse Reactions: Allergies No Known Allergies Allergy (Unverified 06/26/19 16:07) Home Medications: Home Medications Medication Instructions Recorded Confirmed Last Taken Type Acetaminophen [Tylenol] 650 mg PO Q8HR PRN 06/26/19 06/26/19 Unknown History Donepezil [Aricept] 5 mg PO QHS 06/26/19 06/26/19 Unknown History LORazepam [Ativan] 0.5 mg PO TID PRN 06/26/19 06/26/19 Unknown History Quetiapine Fumarate [SEROquel] 50 mg PO QHS 06/26/19 06/26/19 Unknown History SEROquel 25 mg PO BID 06/26/19 06/26/19 Unknown History Tamsulosin [Flomax] 0.4 mg PO QHS 06/26/19 06/26/19 Unknown History Active Medications: Generic Name Dose Route Start Last Admin Trade Name Freq PRN Reason Stop Dose Admin Divalproex Sodium 250 mg 06/30/19 14:00 07/02/19 14:28 Depakote Sprinkle PO 250 mg Q8HR LIGIA Administration Donepezil HCl 5 mg 06/27/19 22:00 07/01/19 21:11 Aricept PO 5 mg QHS LIGIA Administration Haloperidol 5 mg 06/26/19 19:59 07/02/19 11:41 Haldol PO 5 mg Q6H PRN Administration Agitation Haloperidol Lactate 5 mg 06/26/19 19:59 07/02/19 02:22 Haldol IM 5 mg Q6H PRN Administration Agitation Lorazepam 2 mg 06/26/19 19:59 07/02/19 02:22 Ativan IM 2 mg Q6H PRN Administration Agitation Lorazepam 2 mg 06/26/19 20:00 07/02/19 11:41 Ativan PO 2 mg Q6H PRN Administration Agitation Melatonin 10 mg 06/27/19 22:00 06/28/19 21:37 Melatonin PO 10 mg QHS PRN Administration Sleep Naproxen 375 mg 06/30/19 15:04 07/01/19 15:15 Naprosyn PO 375 mg Q12H PRN Administration Pain, Mild (1-3) Prednisone 10 mg 06/30/19 16:00 07/02/19 09:38 Deltasone PO 10 mg QDAY LIGIA Administration Risperidone 0.5 mg 06/27/19 10:00 07/02/19 09:38 Risperdal PO 0.5 mg BID LIGIA Administration Tamsulosin HCl 0.4 mg 06/27/19 22:00 07/01/19 21:11 Flomax PO 0.4 mg QHS LIGIA Administration Trazodone HCl 25 mg 06/27/19 10:00 07/02/19 17:31 Desyrel PO 25 mg QID LIGIA Administration
[2019-07-02] MEDS: TAMSULOSIN 0.4 MG CAP PO SCH (21:28)
[2019-07-02] MEDS: DONEPEZIL 5 MG TAB PO SCH (21:29)
[2019-07-03] MEDS: DIVALPROEX SPRINKLE 125 MG CAP PO SCH ×3 (06:31→22:23)
[2019-07-03] MEDS: traZODone 50 MG TAB PO SCH ×4 (09:51→22:23)
[2019-07-03] MEDS: predniSONE 10 MG TAB PO SCH (09:51)
[2019-07-03] MEDS: risperiDONE 0.25 MG TAB PO SCH ×2 (09:51→22:23)
[2019-07-03] MEDS: LORazepam 2 MG TAB PO PRN ×2 (15:45→22:24)
[2019-07-03] MEDS: HALOPERIDOL 5 MG TAB PO PRN ×2 (15:45→22:24)
--- NOTE | 2019-07-03 21:15 | Progress Note ---
Subjective Date of service: 07/03/19 Principal diagnosis: Dementia with behavioral disturbance Subjective Comment: The patient is confused, wanders with an unsteady gait and high fall risk. He is requiring prn Haldol and Lorazepam for agitation. MSE Affect: agitated Mood: congruent with affect, anxious Thought Process: Disorganized, Disoriented Perceptions: none Speech: paucity Concentration: unable to pay attention Motor activity: restless, agitated Level of consciousness: confused Memory: Recent Impaired, Remote Impaired Interaction: uncooperative Objective - Criteria for Continued Treatment Criteria for Continued Treatment: Improving Level of Functioning, Stablizing Level of Functioning, Improving Emotional/Socia - Objective Observation Participation Level: Minimal Reason(s) For Not Participating: Unable Assessment and Plan - Patient Problems (1) Major neurocognitive disorder due to Alzheimer's disease, with behavioral disturbance Current Visit: Yes Status: Acute Plan to address problem: Continue inpatient admission for medication adjustment and close monitoring The patient's behavior, mood, sleep and appetite will be closely monitored. Patient will be enrolled in individual and group therapeutic sessions and encouraged to attend. Patient will be provided with a safe and structured environment. Patient's physical health needs will be addressed by the Hospitalist. Social Assessment will be completed and the Ems Coordinator will work with patient and family to ensure a suitable and safe disposition Medication adjustment will be made as clinically indicated Medications & Allergies - Medications Allergies/Adverse Reactions: Allergies No Known Allergies Allergy (Unverified 06/26/19 16:07) Home Medications: Home Medications Medication Instructions Recorded Confirmed Last Taken Type Acetaminophen [Tylenol] 650 mg PO Q8HR PRN 06/26/19 06/26/19 Unknown History Donepezil [Aricept] 5 mg PO QHS 06/26/19 06/26/19 Unknown History LORazepam [Ativan] 0.5 mg PO TID PRN 06/26/19 06/26/19 Unknown History Quetiapine Fumarate [SEROquel] 50 mg PO QHS 06/26/19 06/26/19 Unknown History SEROquel 25 mg PO BID 06/26/19 06/26/19 Unknown History Tamsulosin [Flomax] 0.4 mg PO QHS 06/26/19 06/26/19 Unknown History Active Medications: Generic Name Dose Route Start Last Admin Trade Name Freq PRN Reason Stop Dose Admin Divalproex Sodium 250 mg 06/30/19 14:00 07/03/19 14:16 Depakote Sprinkle PO 250 mg Q8HR LIGIA Administration Donepezil HCl 5 mg 06/27/19 22:00 07/02/19 21:29 Aricept PO 5 mg QHS LIGIA Administration Haloperidol 5 mg 06/26/19 19:59 07/03/19 15:45 Haldol PO 5 mg Q6H PRN Administration Agitation Haloperidol Lactate 5 mg 06/26/19 19:59 07/02/19 21:29 Haldol IM 5 mg Q6H PRN Administration Agitation Lorazepam 2 mg 06/26/19 19:59 07/02/19 21:29 Ativan IM 2 mg Q6H PRN Administration Agitation Lorazepam 2 mg 06/26/19 20:00 07/03/19 15:45 Ativan PO 2 mg Q6H PRN Administration Agitation Melatonin 10 mg 06/27/19 22:00 06/28/19 21:37 Melatonin PO 10 mg QHS PRN Administration Sleep Naproxen 375 mg 06/30/19 15:04 07/01/19 15:15 Naprosyn PO 375 mg Q12H PRN Administration Pain, Mild (1-3) Prednisone 10 mg 06/30/19 16:00 07/03/19 09:51 Deltasone PO 10 mg QDAY LIGIA Administration Risperidone 0.5 mg 06/27/19 10:00 07/03/19 09:51 Risperdal PO 0.5 mg BID LIGIA Administration Tamsulosin HCl 0.4 mg 06/27/19 22:00 07/02/19 21:28 Flomax PO 0.4 mg QHS LIGIA Administration Trazodone HCl 25 mg 06/27/19 10:00 07/03/19 18:10 Desyrel PO 25 mg QID LIGIA Administration
[2019-07-03] MEDS: TAMSULOSIN 0.4 MG CAP PO SCH (22:22)
[2019-07-03] MEDS: DONEPEZIL 5 MG TAB PO SCH (22:23)
[2019-07-03] MEDS: MELATONIN 5 MG TAB PO PRN (22:24)
[2019-07-04] MEDS: DIVALPROEX SPRINKLE 125 MG CAP PO SCH ×3 (06:25→22:11)
[2019-07-04] MEDS: risperiDONE 0.25 MG TAB PO SCH ×2 (10:41→22:11)
[2019-07-04] MEDS: predniSONE 10 MG TAB PO SCH (10:41)
[2019-07-04] MEDS: traZODone 50 MG TAB PO SCH ×4 (10:41→22:12)
[2019-07-04] MEDS: HALOPERIDOL LACTATE 5 MG/1 ML INJ IM PRN (10:43)
--- NOTE | 2019-07-04 17:23 | Progress Note ---
Subjective Date of service: 07/04/19 Principal diagnosis: Dementia with behavioral disturbance Subjective Comment: The patient is confused, wanders but easy to redirect. Sleeps all night. Eats weel. Feeds himself. Compliant with medications. No PRN meds required . MSE Affect: Calm Mood: congruent with affect Thought Process: Disorganized, Disoriented Perceptions: none Speech: paucity Concentration: unable to pay attention Motor activity: Increased Level of consciousness: confused Memory: Recent Impaired, Remote Impaired Interaction: Cooperative Objective - Criteria for Continued Treatment Criteria for Continued Treatment: Improving Level of Functioning, Stablizing Level of Functioning, Improving Emotional/Socia - Objective Observation Participation Level: Moderate Assessment and Plan - Patient Problems (1) Major neurocognitive disorder due to Alzheimer's disease, with behavioral disturbance Current Visit: Yes Status: Acute Plan to address problem: Continue inpatient admission for medication adjustment and close monitoring The patient's behavior, mood, sleep and appetite will be closely monitored. Patient will be enrolled in individual and group therapeutic sessions and encouraged to attend. Patient will be provided with a safe and structured environment. Patient's physical health needs will be addressed by the Hospitalist. Social Assessment will be completed and the Order Editor will work with patient and family to ensure a suitable and safe disposition Medication adjustment will be made as clinically indicated
[2019-07-04] MEDS: LORazepam 2 MG TAB PO PRN (22:11)
[2019-07-04] MEDS: TAMSULOSIN 0.4 MG CAP PO SCH (22:11)
[2019-07-04] MEDS: HALOPERIDOL 5 MG TAB PO PRN (22:11)
[2019-07-04] MEDS: DONEPEZIL 5 MG TAB PO SCH (22:12)
[2019-07-05] MEDS: DIVALPROEX SPRINKLE 125 MG CAP PO SCH ×3 (06:14→21:26)
[2019-07-05] MEDS: risperiDONE 0.25 MG TAB PO SCH ×2 (10:02→21:28)
[2019-07-05] MEDS: traZODone 50 MG TAB PO SCH ×4 (10:03→21:27)
--- NOTE | 2019-07-05 14:40 | Progress Note ---
Subjective Date of service: 07/05/19 Principal diagnosis: Dementia with behavioral disturbance Subjective Comment: The patient is confused, wanders but easy to redirect. Sleeps all night. Eats weel. Feeds himself. Compliant with medications. No PRN meds required . MSE Affect: Calm Mood: congruent with affect Thought Process: Disorganized, Disoriented Perceptions: none Speech: paucity Concentration: unable to pay attention Motor activity: Increased Level of consciousness: confused Memory: Recent Impaired, Remote Impaired Interaction: Cooperative Objective - Objective Observation Participation Level: Moderate Assessment and Plan - Patient Problems (1) Major neurocognitive disorder due to Alzheimer's disease, with behavioral disturbance Current Visit: Yes Status: Acute Plan to address problem: Continue inpatient admission for medication adjustment and close monitoring The patient's behavior, mood, sleep and appetite will be closely monitored. Patient will be enrolled in individual and group therapeutic sessions and encouraged to attend. Patient will be provided with a safe and structured environment. Patient's physical health needs will be addressed by the Hospitalist. Social Assessment will be completed and the Digital Technician will work with patient and family to ensure a suitable and safe disposition Medication adjustment will be made as clinically indicated Medications & Allergies - Medications Allergies/Adverse Reactions: Allergies No Known Allergies Allergy (Unverified 06/26/19 16:07) Home Medications: Home Medications Medication Instructions Recorded Confirmed Last Taken Type Acetaminophen [Tylenol] 650 mg PO Q8HR PRN 06/26/19 06/26/19 Unknown History Donepezil [Aricept] 5 mg PO QHS 06/26/19 06/26/19 Unknown History LORazepam [Ativan] 0.5 mg PO TID PRN 06/26/19 06/26/19 Unknown History Quetiapine Fumarate [SEROquel] 50 mg PO QHS 06/26/19 06/26/19 Unknown History SEROquel 25 mg PO BID 06/26/19 06/26/19 Unknown History Tamsulosin [Flomax] 0.4 mg PO QHS 06/26/19 06/26/19 Unknown History Active Medications: Generic Name Dose Route Start Last Admin Trade Name Freq PRN Reason Stop Dose Admin Divalproex Sodium 250 mg 06/30/19 14:00 07/05/19 06:14 Depakote Sprinkle PO 250 mg Q8HR LIGIA Administration Donepezil HCl 5 mg 06/27/19 22:00 07/04/19 22:12 Aricept PO 5 mg QHS LIGIA Administration Haloperidol 5 mg 06/26/19 19:59 07/04/19 22:11 Haldol PO 5 mg Q6H PRN Administration Agitation Haloperidol Lactate 5 mg 06/26/19 19:59 07/04/19 10:43 Haldol IM 5 mg Q6H PRN Administration Agitation Lorazepam 2 mg 06/26/19 19:59 07/02/19 21:29 Ativan IM 2 mg Q6H PRN Administration Agitation Lorazepam 2 mg 06/26/19 20:00 07/04/19 22:11 Ativan PO 2 mg Q6H PRN Administration Agitation Melatonin 10 mg 06/27/19 22:00 07/03/19 22:24 Melatonin PO 10 mg QHS PRN Administration Sleep Naproxen 375 mg 06/30/19 15:04 07/01/19 15:15 Naprosyn PO 375 mg Q12H PRN Administration Pain, Mild (1-3) Risperidone 0.5 mg 06/27/19 10:00 07/05/19 10:02 Risperdal PO 0.5 mg BID LIGIA Administration Tamsulosin HCl 0.4 mg 06/27/19 22:00 07/04/19 22:11 Flomax PO 0.4 mg QHS LIGIA Administration Trazodone HCl 25 mg 06/27/19 10:00 07/05/19 10:03 Desyrel PO 25 mg QID LIGIA Administration
[2019-07-05] MEDS: DONEPEZIL 5 MG TAB PO SCH (21:26)
[2019-07-05] MEDS: MELATONIN 5 MG TAB PO PRN (21:28)
[2019-07-05] MEDS: TAMSULOSIN 0.4 MG CAP PO SCH (21:28)
[2019-07-05] MEDS: LORazepam 2 MG TAB PO PRN (21:29)
[2019-07-05] MEDS: HALOPERIDOL 5 MG TAB PO PRN (21:29)
[2019-07-06] MEDS: DIVALPROEX SPRINKLE 125 MG CAP PO SCH ×3 (06:24→21:32)
[2019-07-06] MEDS: risperiDONE 0.25 MG TAB PO SCH ×2 (11:08→21:32)
[2019-07-06] MEDS: traZODone 50 MG TAB PO SCH ×4 (11:09→22:55)
--- NOTE | 2019-07-06 11:26 | Progress Note ---
Subjective Date of service: 07/06/19 Principal diagnosis: Dementia with behavioral disturbance Subjective Comment: The patient is confused, wanders but easy to redirect. Sleeps all night. Eats weel. Feeds himself. Compliant with medications. PRN medications required only at night. MSE Affect: Calm Mood: congruent with affect Thought Process: Disorganized, Disoriented Perceptions: none Speech: paucity Concentration: unable to pay attention Motor activity: Increased Level of consciousness: confused Memory: Recent Impaired, Remote Impaired Interaction: Cooperative Objective - Criteria for Continued Treatment Criteria for Continued Treatment: Improving Level of Functioning, Stablizing Level of Functioning, Improving Emotional/Socia - Objective Observation Participation Level: Minimal Reason(s) For Not Participating: Wandering Assessment and Plan - Patient Problems (1) Major neurocognitive disorder due to Alzheimer's disease, with behavioral disturbance Current Visit: Yes Status: Acute Plan to address problem: Continue inpatient admission for medication adjustment and close monitoring The patient's behavior, mood, sleep and appetite will be closely monitored. Patient will be enrolled in individual and group therapeutic sessions and encouraged to attend. Patient will be provided with a safe and structured environment. Patient's physical health needs will be addressed by the Hospitalist. Social Assessment will be completed and the Workplace Rehabilitation Officer will work with patient and family to ensure a suitable and safe disposition Medication adjustment will be made as clinically indicated
[2019-07-06] MEDS: HALOPERIDOL 5 MG TAB PO PRN (21:31)
[2019-07-06] MEDS: DONEPEZIL 5 MG TAB PO SCH (21:31)
[2019-07-06] MEDS: TAMSULOSIN 0.4 MG CAP PO SCH (21:31)
[2019-07-07] MEDS: DIVALPROEX SPRINKLE 125 MG CAP PO SCH ×3 (06:31→21:37)
[2019-07-07] MEDS: traZODone 50 MG TAB PO SCH ×4 (09:39→21:37)
[2019-07-07] MEDS: risperiDONE 0.25 MG TAB PO SCH ×2 (09:39→21:37)
[2019-07-07] MEDS: TAMSULOSIN 0.4 MG CAP PO SCH (21:36)
[2019-07-07] MEDS: DONEPEZIL 5 MG TAB PO SCH (21:37)
[2019-07-08] MEDS: DIVALPROEX SPRINKLE 125 MG CAP PO SCH ×3 (06:18→21:28)
[2019-07-08] MEDS: risperiDONE 0.25 MG TAB PO SCH ×2 (09:05→21:28)
[2019-07-08] MEDS: traZODone 50 MG TAB PO SCH ×4 (09:50→21:29)
--- NOTE | 2019-07-08 16:30 | Progress Note ---
Subjective Date of service: 07/08/19 Principal diagnosis: Dementia with behavioral disturbance Subjective Comment: The patient is confused, wanders but easy to redirect. Sleeps all night. Eats weel. Feeds himself. Compliant with medications. PRN medications required only at night. MSE Affect: Calm Mood: congruent with affect Thought Process: Disorganized, Disoriented Perceptions: none Speech: paucity Concentration: unable to pay attention Motor activity: Increased Level of consciousness: confused Memory: Recent Impaired, Remote Impaired Interaction: Cooperative Objective - Criteria for Continued Treatment Criteria for Continued Treatment: Improving Level of Functioning, Reducing Isolative Behaviors, Improving Emotional/Socia - Objective Observation Participation Level: Minimal Reason(s) For Not Participating: Wandering Assessment and Plan - Patient Problems (1) Major neurocognitive disorder due to Alzheimer's disease, with behavioral disturbance Current Visit: Yes Status: Acute Plan to address problem: Continue inpatient admission for medication adjustment and close monitoring The patient's behavior, mood, sleep and appetite will be closely monitored. Patient will be enrolled in individual and group therapeutic sessions and encouraged to attend. Patient will be provided with a safe and structured environment. Patient's physical health needs will be addressed by the Hospitalist. Social Assessment will be completed and the Splicer Apprentice will work with patient and family to ensure a suitable and safe disposition Medication adjustment will be made as clinically indicated
[2019-07-08] MEDS: HALOPERIDOL 5 MG TAB PO PRN (19:56)
[2019-07-08] MEDS: LORazepam 2 MG TAB PO PRN (19:56)
[2019-07-08] MEDS: TAMSULOSIN 0.4 MG CAP PO SCH (21:28)
[2019-07-08] MEDS: DONEPEZIL 5 MG TAB PO SCH (21:28)
[2019-07-08] MEDS: MELATONIN 5 MG TAB PO PRN (21:29)
[2019-07-09] MEDS: DIVALPROEX SPRINKLE 125 MG CAP PO SCH ×3 (06:22→21:53)
--- NOTE | 2019-07-09 09:05 | Progress Note ---
Subjective Date of service: 07/09/19 Principal diagnosis: Dementia with behavioral disturbance Subjective Comment: The patient is confused, wanders but easy to redirect. Sleeps all night. Eats well. Feeds himself. Compliant with medications. PRN medications required only at night. MSE Affect: Calm Mood: congruent with affect Thought Process: Disorganized, Disoriented Perceptions: none Speech: paucity Concentration: unable to pay attention Motor activity: Increased Level of consciousness: confused Memory: Recent Impaired, Remote Impaired Interaction: Cooperative Objective - Criteria for Continued Treatment Criteria for Continued Treatment: Improving Level of Functioning, Improving Emotional/Socia - Objective Observation Participation Level: Moderate Reason(s) For Not Participating: Unable Assessment and Plan - Patient Problems (1) Major neurocognitive disorder due to Alzheimer's disease, with behavioral disturbance Current Visit: Yes Status: Acute Plan to address problem: Continue inpatient admission for medication adjustment and close monitoring The patient's behavior, mood, sleep and appetite will be closely monitored. Patient will be enrolled in individual and group therapeutic sessions and encouraged to attend. Patient will be provided with a safe and structured environment. Patient's physical health needs will be addressed by the Hospitalist. Social Assessment will be completed and the Wood Tile Installer will work with patient and family to ensure a suitable and safe disposition Medication adjustment will be made as clinically indicated Medications & Allergies - Medications Allergies/Adverse Reactions: Allergies No Known Allergies Allergy (Unverified 06/26/19 16:07) Home Medications: Home Medications Medication Instructions Recorded Confirmed Last Taken Type Acetaminophen [Tylenol] 650 mg PO Q8HR PRN #60 capsule 07/07/19 Unknown Rx Divalproex Sprinkle [Depakote 250 mg PO Q8HR #120 capsule 07/07/19 Unknown Rx Sprinkle] Donepezil [Aricept] 5 mg PO QHS #30 tablet 07/07/19 Unknown Rx Haloperidol [Haldol] 5 mg PO Q24HR PRN #30 tablet 07/07/19 Unknown Rx LORazepam [Ativan] 0.5 mg PO TID PRN #60 tablet 07/07/19 Unknown Rx Melatonin [Melatonin 5MG TAB] 10 mg PO QHS PRN #60 tablet 07/07/19 Unknown Rx Tamsulosin [Flomax] 0.4 mg PO QHS #30 capsule 07/07/19 Unknown Rx risperiDONE [RisperDAL] 0.5 mg PO BID #120 tablet 07/07/19 Unknown Rx traZODone [Desyrel] 25 mg PO QID #60 tablet 07/07/19 Unknown Rx Active Medications: Generic Name Dose Route Start Last Admin Trade Name Freq PRN Reason Stop Dose Admin Divalproex Sodium 250 mg 06/30/19 14:00 07/10/19 06:50 Depakote Sprinkle PO 250 mg Q8HR LIGIA Administration Donepezil HCl 5 mg 06/27/19 22:00 07/09/19 21:53 Aricept PO 5 mg QHS LIGIA Administration Haloperidol 5 mg 06/26/19 19:59 07/09/19 20:29 Haldol PO 5 mg Q6H PRN Administration Agitation Haloperidol Lactate 5 mg 06/26/19 19:59 07/04/19 10:43 Haldol IM 5 mg Q6H PRN Administration Agitation Lorazepam 2 mg 06/26/19 19:59 07/02/19 21:29 Ativan IM 2 mg Q6H PRN Administration Agitation Lorazepam 2 mg 06/26/19 20:00 07/09/19 20:29 Ativan PO 2 mg Q6H PRN Administration Agitation Melatonin 10 mg 06/27/19 22:00 07/09/19 21:54 Melatonin PO 10 mg QHS PRN Administration Sleep Naproxen 375 mg 06/30/19 15:04 07/01/19 15:15 Naprosyn PO 375 mg Q12H PRN Administration Pain, Mild (1-3) Risperidone 0.5 mg 06/27/19 10:00 07/09/19 21:54 Risperdal PO 0.5 mg BID LIGIA Administration Tamsulosin HCl 0.4 mg 06/27/19 22:00 07/09/19 21:54 Flomax PO 0.4 mg QHS LIGIA Administration Trazodone HCl 25 mg 06/27/19 10:00 07/09/19 21:53 Desyrel PO 25 mg QID LIGIA Administration
[2019-07-09] MEDS: traZODone 50 MG TAB PO SCH ×4 (10:11→21:53)
[2019-07-09] MEDS: risperiDONE 0.25 MG TAB PO SCH ×2 (10:16→21:54)
[2019-07-09] MEDS: LORazepam 2 MG TAB PO PRN (20:29)
[2019-07-09] MEDS: HALOPERIDOL 5 MG TAB PO PRN (20:29)
[2019-07-09] MEDS: DONEPEZIL 5 MG TAB PO SCH (21:53)
[2019-07-09] MEDS: MELATONIN 5 MG TAB PO PRN (21:54)
[2019-07-09] MEDS: TAMSULOSIN 0.4 MG CAP PO SCH (21:54)
[2019-07-10] MEDS: DIVALPROEX SPRINKLE 125 MG CAP PO SCH ×3 (06:50→22:00)
--- NOTE | 2019-07-10 06:56 | Discharge Summary ---
Providers - Providers Date of Admission: 06/26/19 21:20 Date of discharge: 07/11/19 Attending physician: BEATRICE DALTON MD 06/27/19 10:00 Consult to Physician [CONS] Routine Comment: Consulting Provider: MARY TAMEZ Physician Instructions: Reason For Exam: H&P AND MEDICAL MGMT Primary care physician: [facility] Hospitalization Reason for admission: Danger to self, Danger to others, Unable to care for self Condition: Stable Hospital course: The patient was provided inpatient psychiatric treatment with safe and supportive environment, group therapy, individual counseling, psychiatric medication, medication adjustment, adverse effect monitor, medical evaluation, medical treatment, social service assessment, family/social support meeting, placement assessment and psycho-education. The patients mood, anxiety, thoughts, stress management skill, cognition, impulse/anger control, motivation, understanding of disease, compliance to treatment and appreciation on family/social support are improved and stabilized. At the time of discharge, the patient had no suicidal ideas, no homicidal ideas, no aggressive thoughts, no endangering behavior and no debilitating adverse effects. Disposition: [id number]/[place]-[facility] Allergies/Adverse Reactions: Allergies No Known Allergies Allergy (Unverified 06/26/19 16:07) Vital Signs: Last Vital Signs Temp 98.0 F 07/09/19 22:00 Pulse 88 07/09/19 22:00 Resp 20 07/09/19 22:00 BP 140/86 07/09/19 22:00 Pulse Ox 98 07/09/19 22:00 Last Lab: Laboratory Last Values WBC 13.5 K/mm3 (4.5-11.0) H 07/01/19 10:01 RBC 4.80 M/mm3 (3.65-5.03) 07/01/19 10:01 Hgb 13.8 gm/dl (11.8-15.2) 07/01/19 10:01 Hct 41.0 % (35.5-45.6) 07/01/19 10:01 MCV 85 fl (84-94) 07/01/19 10:01 MCH 29 pg (28-32) 07/01/19 10:01 MCHC 34 % (32-34) 07/01/19 10:01 RDW 15.2 % (13.2-15.2) 07/01/19 10:01 Plt Count 306 K/mm3 (140-440) 07/01/19 10:01 Lymph % (Auto) 12.5 % (13.4-35.0) L 07/01/19 10:01 Bledsoe % (Auto) 9.1 % (0.0-7.3) H 07/01/19 10:01 Eos % (Auto) 0.4 % (0.0-4.3) 07/01/19 10:01 Baso % (Auto) 0.2 % (0.0-1.8) 07/01/19 10:01 Lymph # 1.7 K/mm3 (1.2-5.4) 07/01/19 10:01 Bledsoe # 1.2 K/mm3 (0.0-0.8) H 07/01/19 10:01 Eos # 0.1 K/mm3 (0.0-0.4) 07/01/19 10:01 Baso # 0.0 K/mm3 (0.0-0.1) 07/01/19 10:01 Seg Neutrophils % 77.8 % (40.0-70.0) H 07/01/19 10:01 Seg Neutrophils # 10.5 K/mm3 (1.8-7.7) H 07/01/19 10:01 Sodium 138 mmol/L (137-145) 07/01/19 10:01 Potassium 4.2 mmol/L (3.6-5.0) 07/01/19 10:01 Chloride 100.6 mmol/L (98-107) 07/01/19 10:01 Carbon Dioxide 24 mmol/L (22-30) 07/01/19 10:01 Anion Gap 18 mmol/L 07/01/19 10:01 BUN 17 mg/dL (9-20) 07/01/19 10:01 Creatinine 0.8 mg/dL (0.8-1.5) 07/01/19 10:01 Estimated GFR > 60 ml/min 07/01/19 10:01 BUN/Creatinine Ratio 21 % 07/01/19 10:01 Glucose 96 mg/dL (75-100) 07/01/19 10:01 POC Glucose 112 (70-105) H 06/26/19 21:24 Hemoglobin A1c 5.8 % (4-6) 06/26/19 16:19 Uric Acid 4.2 mg/dL (3.5-7.6) 06/30/19 20:44 Calcium 9.7 mg/dL (8.4-10.2) 07/01/19 10:01 Triglycerides 161 mg/dL (2-149) H 06/26/19 19:16 Cholesterol 182 mg/dL (50-199) 06/26/19 19:16 LDL Cholesterol Direct 130 mg/dL (50-130) 06/26/19 19:16 HDL Cholesterol 49 mg/dL (40-59) 06/26/19 19:16 Cholesterol/HDL Ratio 3.71 % 06/26/19 19:16 - Discharge Diagnoses (1) Major neurocognitive disorder due to Alzheimer's disease, with behavioral disturbance Status: Acute Core Measure Documentation - Palliative Care Palliative Care/ Comfort Measures: Not Applicable - Core Measures Any of the following diagnoses?: none Exam - Constitutional Vitals: Temp Pulse Resp BP Pulse Ox 98.0 F 88 20 140/86 98 07/09/19 22:00 07/09/19 22:00 07/09/19 22:00 07/09/19 22:00 07/09/19 22:00 Plan Care Plan Goals: Decrease aggression Plan of Treatment: Encourage medication compliance Health Concerns: Confusion Assessment: Major Neurocognitive disorder with behavioral disorder Follow up with: PRIMARY CARE, [Primary Care Provider] - 7 Days Prescriptions: Donepezil [Aricept] 5 mg PO QHS #30 tablet Tamsulosin [Flomax] 0.4 mg PO QHS #30 capsule Melatonin [Melatonin 5MG TAB] 10 mg PO QHS PRN #60 tablet PRN Reason: Sleep LORazepam [Ativan] 0.5 mg PO TID PRN #60 tablet PRN Reason: Agitation Divalproex Sprinkle [Depakote Sprinkle] 250 mg PO Q8HR #120 capsule traZODone [Desyrel] 25 mg PO QID #60 tablet Haloperidol [Haldol] 5 mg PO Q24HR PRN #30 tablet PRN Reason: Agitation risperiDONE [RisperDAL] 0.5 mg PO BID #120 tablet Acetaminophen [Tylenol] 650 mg PO Q8HR PRN #60 capsule PRN Reason: Pain , Severe (7-10)
[2019-07-10] MEDS: traZODone 50 MG TAB PO SCH ×4 (09:34→23:11)
[2019-07-10] MEDS: risperiDONE 0.25 MG TAB PO SCH ×2 (09:34→23:11)
[2019-07-10] MEDS: HALOPERIDOL 5 MG TAB PO PRN (11:41)
[2019-07-10] MEDS: LORazepam 2 MG TAB PO PRN (11:41)
--- NOTE | 2019-07-10 11:46 | XRay Report ---
CHEST 1 VIEW INDICATION: r/o TB. COMPARISON: None FINDINGS: Support devices: None. Heart: Within normal limits. Lungs/Pleura: No acute air space or interstitial disease. Additional findings: None. IMPRESSION: No acute findings. Signer Name: Yadiel Hernandez Jr, MD Signed: 07/10/2019 11:42 AM Workstation Name: [id number]
--- NOTE | 2019-07-10 11:49 | Progress Note ---
Subjective Date of service: 07/10/19 Principal diagnosis: Dementia with behavioral disturbance Subjective Comment: The patient is confused, wanders but easy to redirect. Sleeps all night. Eats well. Feeds himself. Compliant with medications. No PRN medications required. MSE Affect: Calm Mood: congruent with affect Thought Process: Disorganized, Disoriented Perceptions: none Speech: paucity Concentration: unable to pay attention Motor activity: Increased Level of consciousness: confused Memory: Recent Impaired, Remote Impaired Interaction: Cooperative Objective - Criteria for Continued Treatment Criteria for Continued Treatment: Stablizing Level of Functioning, Improving Emotional/Socia - Objective Observation Participation Level: Minimal Reason(s) For Not Participating: Wandering Assessment and Plan - Patient Problems (1) Major neurocognitive disorder due to Alzheimer's disease, with behavioral disturbance Current Visit: Yes Status: Acute Plan to address problem: Continue inpatient admission for medication adjustment and close monitoring The patient's behavior, mood, sleep and appetite will be closely monitored. Patient will be enrolled in individual and group therapeutic sessions and encouraged to attend. Patient will be provided with a safe and structured environment. Patient's physical health needs will be addressed by the Hospitalist. Social Assessment will be completed and the Supervisor Intermediates will work with patient and family to ensure a suitable and safe disposition Medication adjustment will be made as clinically indicated
[2019-07-10] MEDS: NAPROXEN 375 MG TAB PO PRN (13:28)
[2019-07-10] MEDS: TAMSULOSIN 0.4 MG CAP PO SCH (23:10)
[2019-07-10] MEDS: DONEPEZIL 5 MG TAB PO SCH (23:11)
[2019-07-11 02:06] VITALS: BP 136/57
[2019-07-11] MEDS: DIVALPROEX SPRINKLE 125 MG CAP PO SCH ×2 (06:23→13:55)
[2019-07-11] MEDS: traZODone 50 MG TAB PO SCH ×2 (10:07→13:55)
[2019-07-11] MEDS: risperiDONE 0.25 MG TAB PO SCH (10:07)
[2019-07-11] MEDS: HALOPERIDOL 5 MG TAB PO PRN (10:09)
[2019-07-11] MEDS: NAPROXEN 375 MG TAB PO PRN (10:09)
== END 2019-07-11 14:30 | DRG 57 ==
LOC: UNDOADMIN 17:44 → 3A 17:44 → 5A 21:20
PROVIDERS: ADMIT Psychiatry & Neurology Psychiatry; ATTEND Internal Medicine
DX: G30.8 Other Alzheimer's disease (principal); F02.81 Dementia in other diseases classified elsewhere, unspecified severity, with behavioral disturbance; N40.0 Benign prostatic hyperplasia without lower urinary tract symptoms
CPT/HCPCS: 36415; 71045; 80048; 80061; 80307; 80320; 81001; 82962; 83036; 84550; 85025; 96372; G0378; G0480; J1630; J2060; J7512